=== PATIENT | male | born 1980 | race Caucasian/White ===

== ENCOUNTER → 2023-04-09 | Outpatient (CLI) | payer SELFPAY ==
--- NOTE | 2023-04-09 16:39 | MRI_ITS ---
STUDY: MRI LEFT KNEE REASON FOR EXAM: Male, 42 years old. Left knee mass. Pain. TECHNIQUE: Standardized fat and water weighted pulse sequences were obtained in all 3 orthogonal planes. COMPARISON: None. FINDINGS: There is medial meniscus tear of the posterior horn and body with delamination, series 8 images 12/15 through . Normal hyaline cartilage of the medial femorotibial compartment. Normal medial femoral condyle and tibial plateau. Normal medial collateral ligamentous complex (MCL). Normal distal semimembranosus, gracilis and semitendinosus tendons. Normal lateral meniscus. Normal hyaline cartilage of the lateral femorotibial compartment. Normal lateral femoral condyle and tibial plateau. Normal proximal tibiofibular articulation. Normal lateral collateral ( fibular ) ligament. Normal popliteus tendon. Normal biceps femoris tendon. Normal anterior cruciate ligament (ACL). Normal posterior cruciate ligament (PCL). Normal congruent patellofemoral articulation. Normal hyaline cartilage of the patellofemoral compartment. Normal medial and lateral patellar retinaculum. Normal quadriceps tendon. Normal patellar tendon. Normal Hoffa''s fat pad. There is a small volume joint effusion. There is 3.2 x 1.7 cm lobular septated increased T1 and T2 signal mass in the lateral soft tissues. The otherwise visualized osseous structures are unremarkable. MRI/Lower Ext Joint Only W/WO Cont IMPRESSION: Complex cystic mass in the lateral subcutaneous soft tissues. Medial meniscus tear. Electronically Signed: Severino Hassan MD at 22:34 EST ,
== END | disposition home or self-care (01) ==
PROVIDERS: Referring Provider Surgery; Visit Provider Surgery
DX: M25.862 Other specified joint disorders, left knee (principal)
CPT/HCPCS: 73723; A9575

== ENCOUNTER 2024-06-10 05:53 | Day surgery (SDC) | payer SELFPAY ==
[2024-06-10] VITALS (8 sets, daily range): BP systolic 96–111; BP diastolic 58–80; PULSE 63–74; RESP 12–18; TEMP 36.2–36.9; O2SAT 97–99; BMI 24.5
[2024-06-10] MEDS: Lactated Ringers 1,000 ML 15 ML IV (06:36)
--- NOTE | 2024-06-10 06:51 | PCM.HP.BLA ---
History and Physical Date of Admission: 06/10/24 Intake Vital Signs 04/26/2413:21 05/18/2513:40 Height 5 ft 6 in 5 ft 6 in Weight: 155 lb BMI 25.0 BP 112/75 Blood Pressure Location Lt brachial Position Sitting Respiration 16 Intake Visit Reasons: update h&P for exc cyst in OR-s/p Chief Complaint: discuss surgery Javascript Engineer Required: No Is patient in pain?: No Allergies No Known Allergies Allergy (Unverified 05/18/24 14:41) Medications ?Medication ?Instructions ?Recorded ?Confirmed ?Type ascorbic acid (vitamin C) 500 mg mg PO 05/18/24 05/18/24 History capsule garlic 500 mg capsule 500 mg PO QDAY 05/18/24 05/18/24 History cesilia root extract 50 mg tablet mg PO 05/18/24 05/18/24 History grape seed extract 100 mg capsule mg PO 05/18/24 05/18/24 History turmeric 400 mg capsule mg PO 05/18/24 05/18/24 History vitamin B complex 1 tab PO QDAY 05/18/24 05/18/24 History Have you fallen in the past year?: No PFSH Medical History Mass of joint of left knee Cyst, dermoid, leg Dermoid cyst of left lower extremity Social History (Updated 05/18/24 @ 14:40 by Livier Vargas) Smoking Status: Never smoker alcohol intake: never HPI HPI HPI: Patient is a 43 y/o M who presents for an update history and physical for an elective left lateral lower extremity skin mass removal. Patient denies any recent hospitalizations or illnesses. He notes the mass was sore last week as he hit it on the door. He notes today there is no pain. He denies any drainage from the mass. He states approximately 6 years ago he had the area opened and drained in [place]. He notes the surgeon performing the procedure removed a cystic structure, however the lesion returned. He denies any trauma to the area. He denies any bleeding from the lesion. Patient denies any previous complication or side effects from anesthesia. He denies previous cardiac or pulmonary history. He does not take any routine medications. Patient's previous history per Dr. Kim: Patient is here for fluid collection on the lateral left knee. Patient reports he had a cyst removed from this area 2 years ago and ever since it keeps filling up with fluid he keeps draining with a needle and syringe. Patient is a 42-year-old male with a cyst on the lateral aspect of his knee. I have ordered an MRI which did not show any communication with the joint. MRI results completed on 04/09/23: FINDINGS: There is medial meniscus tear of the posterior horn and body with delamination, series 8 images 12/15 through . Normal hyaline cartilage of the medial femorotibial compartment. Normal medial femoral condyle and tibial plateau. Normal medial collateral ligamentous complex (MCL). Normal distal semimembranosus, gracilis and semitendinosus tendons. Normal lateral meniscus. Normal hyaline cartilage of the lateral femorotibial compartment. Normal lateral femoral condyle and tibial plateau. Normal proximal tibiofibular articulation. Normal lateral collateral (fibular) ligament. Normal popliteus tendon. Normal biceps femoris tendon. Normal anterior cruciate ligament (ACL). Normal posterior cruciate ligament (PCL). Normal congruent patellofemoral articulation. Normal hyaline cartilage of the patellofemoral compartment. Normal medial and lateral patellar retinaculum. Normal quadriceps tendon. Normal patellar tendon. Normal Hoffa''s fat pad. There is a small volume joint effusion. There is 3.2 x 1.7 cm lobular septated increased T1 and T2 signal mass in the lateral soft tissues. The otherwise visualized osseous structures are unremarkable. MRI/Lower Ext Joint Only W/WO Cont IMPRESSION: Complex cystic mass in the lateral subcutaneous soft tissues. Medial meniscus tear. ROS General General: No weight change, appetite, fatigue, colon cancer or breast cancer HEENT HEENT: No difficulty swallowing, eye injury, eye surgery, swollen glands or hoarseness Endo Endocrine: No thyroid disease, diabetes mellitus, thyroid cancer, Hair loss, heat intolerance or cold intolerance Skin Skin: No rash or changing moles Musc Musculoskeletal: No back problems, arthritis, rheumatoid arthritis, gout or joint pain Cardio Cardiovascular: No murmur, pacemaker, heart disease, atrial fibrillation, high blood pressure, heart attack, heart stent, palpitations, shortness of breath with exertion or chest pain Psych Psychiatric: No depression, anxiety or hearing voices Resp Respiratory: No shortness of breath, No sleep apnea, No cough, No COPD, No asthma, No emphysema and No wheezing Gastro Gastrointestinal: No abdominal pain, No nausea or vomiting, No diarrhea, No constipation, No blood in stool, No acid reflux, No hemorrhoids, No ulcers, No gallbladder problem and No black,tarry stools Mikhail Hematologic: No blood thinners, No blood disorders, No bleeding, No anemia and No blood clots Neuro Neurologic: No numbness and No tingling Exam Const General: cooperative, healthy appearing and comfortable [facility] Head: normal to inspection Eyes General: appearance normal, both eyes and all related structures Neck Neck: normal visual inspection Neck mass: No Resp Effort & Inspection: normal respiratory effort Auscultation: clear to auscultation bilaterally Cardio Palpation: normal PMI GI Inspection: normal to inspection Palpation: soft Auscultation: normal bowel sounds Musc Cervical Spine: normal cervical lordosis Skin Other: Left lateral aspect of the knee- cystic mass noted approximately 4 cm diameter. Tenderness to palpation. No drainage noted. Appears to have some vascularity to it. Neuro General: no focal motor deficits and CN's II-XI intact bilaterally Extrem General: normal to inspection Psych Appearance: grossly normal Affect: normal affect Assessment and Plan Assessment and Plan (1) Mass of joint of left knee: Status: Acute Plan: Dr. Kim will plan to perform an excision of subcutaneous mass left lateral lower extremity. Procedure details, risks including but not limited to bleeding, infection, injury to the knee joint, injury to any nerve or blood vessel and benefits have been explained. Patient has had the opportunity to ask and have questions answered. Patient verbally understands and agrees with the plan. Patient will hold the tumeric for 7 days prior to the procedure. I have examined the patient and the H&P has been reviewed. There are no clinical changes since date of exam.
--- NOTE | 2024-06-10 07:03 | PRE.ANES_ITS ---
ASA Classification* ASA Classification ASA Classification: 1 Assessment & Plan Anesthesia* Anesthesia Assessment Anesthesia Assessment: Discussed sedation and/or anesthesia options, risks, benefits, and alternatives with patient/parents/legal guardian/POA. Questions invited. The patient/parents/legal guardian/POA seems to understand and agrees to proceed with anesthesia plan. Reviewed the physical assessment, medical history, allergy history and patient home medications list prior to surgery/procedure/anesthetic and documented any changes. Performed airway and anesthesia risk assessments. 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 When Was Last Pacemaker Check QUESTION #4 FULL TEXT: You/Your Family Experience fever (hyperthermia) with Anesthesia Last Oral Intake Last Oral intake: Last Oral Intake NPO since 21:00 06/10/24 06:29 Meds taken in AM with sips of No 06/10/24 06:29 water? Meds patient instructed to take am of surgery PONV PONV - restaurant delivery driver: PONV - restaurant delivery driver Female No 05/27/24 12:36 HX of Motion Sickness Yes 05/27/24 12:36 HX of N/V After Surgery No 05/27/24 12:36 Non-Smoker No 05/27/24 12:36 Duration of Surgery greater Yes 05/27/24 12:36 than 60 minutes Number of Risk Factors 2 05/27/24 12:36 PONV Score Moderate Risk 05/27/24 12:36 Height & Weight Height & Weight: Anesthesia: Height & Weight Height 5 ft 6 in 06/10/24 06:29 Weight: 68.9 kg 06/10/24 06:29 Body Mass Index (BMI) 24.5 06/10/24 06:29 Respiratory Assessment Respiratory Assessment - restaurant delivery driver: Respiratory Tract Infection Hx - restaurant delivery driver Hx Respiratory Tract Infection No 05/27/24 12:36 STOP Sleep Apnea STOP Sleep Apnea - restaurant delivery driver: STOP Sleep Apnea - restaurant delivery driver Hx Hypertension No 05/27/24 12:36 Hx Sleep Apnea No 05/27/24 12:36 CPAP BIPAP Do you snore loudly (louder No 05/27/24 12:36 than talking or can be heard Do you often feel tired/ No 05/27/24 12:36 fatigued/ sleepy during daytime? Has anyone observed you stop No 05/27/24 12:36 breathing during sleep? STOP Results Negative 05/27/24 12:36 QUESTION #5 FULL TEXT : Do you snore loudly (louder than talking or can be heard through closed doors)? 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 Specify any problems Hx of Preganancy in last 3 N/A 05/27/24 12:36 Months Nurse Filling Out Transfusion MGRIFFITH 05/27/24 12:36 & Questions: Date: 05/27/24 05/27/24 12:36 Time: 12:38 05/27/24 12:36 Patient unable to answer at this time (ie. confused, unrespo /Reproduction History /Reproductive History - restaurant delivery driver: /Reproductive Hx- restaurant delivery driver Hx Now Gestational Age (in weeks): EDC: Hx Hx Para Hx Section SAB Active Medications Active Medications: Current Medications Generic Name Dose Route Start Last Admin Trade Name Freq PRN Reason Stop Dose Admin Cefotetan Disodium 2 gm/ 100 mls @ 200 mls/hr 06/10/24 07:30 Sodium Chloride IV 06/10/24 07:59 INTRAOP ONE Lactated Ringer's 1,000 mls @ 15 mls/hr 06/10/24 06:15 06/10/24 06:36 IV 15 mls/hr .Q48H LILIANA Administration PFSH Medical History (Updated 05/27/24 @ 12:44 by Pam Dhillon) Cancer Non-smoker Mass of joint of left knee Cyst, dermoid, leg Dermoid cyst of left lower extremity Home Medications ?Medication ?Instructions ?Recorded ?Last Taken ?Type ascorbic acid (vitamin C) 500 mg 500 mg PO DAILY 05/1806/09/24 History capsule garlic 500 mg capsule 500 mg PO QDAY 05/18/24 Unkn own History cesilia root extract 50 mg tablet 50 mg PO DAILY 06/09/24 History grape seed extract 100 mg capsule 100 mg PO DAILY 04/1206/09/24 History turmeric 400 mg capsule 4 mg PO DAILY 05/18/24 Unkno wn History vitamin B complex 1 tab PO QDAY 05/18/2406/09 History Allergy/AdvReac Type Severity Reaction Status Date / Time No Known Allergies Allergy Verified 05/27/24 12:34 no significant family history Surgical History History of removal of testicle Social History (Updated 05/18/24 @ 14:40 by Livier Vargas) Smoking Status: Never smoker alcohol intake: never Review of Systems (Anesthesia) ROS Narrative System reviewed and no additional complaints, except as documented.
[2024-06-10] MEDS: Cefotetan 2 GM in 0.9% Normal Saline (100mL MB+) 100 ML IV (07:26)
--- NOTE | 2024-06-10 07:30 | LES_PTH ---
PATIENT: DEANGELO PACHECO Jr. LOC: [facility] [place] U#:[id number] AGE/SX: 43/M ROOM: RE06/10/[address]: Dr. Denis Kim MD : 1980 BED: DIS: 06/10/2024 SPEC #: [id number] RECD: 06/10/24 09:39 STATUS: FEROZ REKalyn #: [id number] BARRETT: 06/10/24 07:[address]: Denis Kim DEPT: SURGICAL PATHOLOGY RECD BY: Kb Vigil ENTERED: 06/10/24 09:39 SP TYPE: Lesion OTHR DR: No Primary Care Phys Tissues: A - Skin of leg, NOS Procedures: Surgery Specimen Level IV HEADER OPERATION: Excision mass left lower leg PRE-OP DIAGNOSIS: Mass of joint of left knee TISSUE SUBMITTED: A- Mass left lower leg MICROSCOPIC DIAGNOSIS A. Skin and soft tissue, left lower leg, mass, excision: * Poroma - see Comment. COMMENT The slides/images were reviewed in intradepartmental consultation by Dr Meliza Nowak (dermatopathology division, [facility]). MICROSCOPIC DESCRIPTION Slides are reviewed. GROSS DESCRIPTION A. Received in formalin in a container labeled with the patient's name, date of , and mass left lower leg is a 2.6 x 2.1 x 1.3 cm previously disrupted, shaggy, and unoriented soft tissue excision. It is partially surfaced by a poorly adherent portion of bellamy-pink and unremarkable skin measuring 3.1 x 1.4 cm. Due to the disrupted nature, a distinct margin is not grossly recognized. Serial sections reveal bellamy-pink, friable, and somewhat papillary surfaces underlying the skin. Also received in the same container are 2 bellamy-pink fragments of soft tissue and skin each measuring 1.0 x 0.8 x 0.7 cm. Sectioning of each reveals unremarkable cut surfaces. Meat And Seafood Manager sections are submitted in A1-2. [facility] 06-10-2024 CPT:[id number]
[2024-06-10] MEDS: Lidocaine 1% /Epi 1:100 (20ml) 20 ML Vial (07:33)
--- NOTE | 2024-06-10 07:54 | PCM.POST.ANE ---
Anesthesia: Postop Eval I Current Vital Signs Temperature: 97.1 F Pulse Rate: 74 Blood Pressure: 97/58 Respiratory Rate: 16 Pulse Ox: 98 Oxygen Delivery Method: Room Air Fraction of Inspired Oxygen (FIO2): 0.21 Assessment Airway patent: Yes Spontaneous unlabored respirations: Yes Mental status: Awake nausea: No Vomiting: No Anesthesia Complication: No Fluid Hydration Crystalloid volume administer (ml): 400 Total IV fluid infused: 400 Progress Note Anesthesia document: Postop Eval 1 completed: Yes
--- NOTE | 2024-06-10 08:10 | OP.PCM_ITS ---
Operative Report (Standard) Operative Information Date of Procedure: 06/10/24 Pre-Operative Diagnosis: Left lower extremity mass Post-Operative Diagnosis: Same Surgery/Procedure Performed: Excision of left lower extremity mass, 4 cm distance education coordinator: Yes Grader Tender: Leah Gomez Tasks completed by personal injury legal assistant: Retracting Type of Anesthesia: Local MAC RN Documented Start/Stop Times: Operation Date: 06/10/24 07:30 Case Time Into Pre-Op 06/10/24 06:09 Anesthesia Start 06/10/24 07:18 Into Room 06/10/24 07:18 Out of Pre-Op 06/10/24 07:19 Procedure Start 06/10/24 07:33 Procedure End 06/10/24 07:44 Anesthesia End 06/10/24 07:49 Out of Room 06/10/24 07:49 Into Recovery 06/10/24 07:51 Out of Recovery 06/10/24 08:05 Into Phase II Recovery 06/10/24 08:06 Procedure Start Time: 07:33 Procedure Stop Time: 07:44 Select all DRAINS/GRAFTS/IMPLANTS that apply: None Estimated Blood Loss: 5 Specimen collected: Yes Description of specimen(s) removed: Left lower extremity mass Description of surgery: The patient was brought back to the operating room and MAC anesthesia was induced. The left lower extremity was prepped and draped in the usual sterile fashion. The area overlying the cystic portion was anesthetized and then opened with a scalpel and drained. Next an elliptical incision was made and skin was removed. The contents and the mass were excised. The area was irrigated and suctioned dry. Hemostasis was obtained use electrocautery. The incision was then closed with interrupted 3-0 Vicryl sutures and interrupted 3-0 nylon sutures. Dressing and Coban were applied. Patient was taken to PACU in stable condition. Surgical Findings: Cystic mass of the lateral left knee Complications Complications: No
--- NOTE | 2024-06-10 08:16 | EX.PCM.DISCH ---
Discharge Instructions Diet Discharge Diet: Light diet - advance as tolerated Activity Discharge Activity: May Drive (once off narcotics) and May Shower Lifting Restrictions: none Dressing / Incision Call your doctor if your incision/area has: Continuous Slow Oozing, Sudden Increased Bleeding, Increased Pain/ Swelling, Increased Redness, Foul Smelling Discharge and Swelling at the incision site Call your doctor if you observe: Fever of 101 or Higher Change Dressing in: 1 day Cleanse incision/area with: Soap & Water Additional Dressing/Incision Instructions:: Alternate ibuprofen and Tylenol for pain control, oxycodone for breakthrough pain Follow Up Care Please Follow Up With: Denis Kim MD When: Please call to schedule 2 week follow up appointment. [phone] Test Results: Test results from this visit will be discussed in further detail at your follow-up appointment, if applicable. Discharge Plan Admission Attending Provider: Denis Kim Primary Care Provider: Care Physician,No Primary Instructions Print Language: Slovak Discharge Orders/Prescriptions Prescriptions: New oxycodone 5 mg Tablet 5 - 10 mg PO Q4H PRN PRN (Reason: Pain Score 4-10) 5 Days Qty: 14 0RF No Action garlic 500 mg capsule 500 mg PO QDAY ascorbic acid (vitamin C) 500 mg capsule 500 mg PO DAILY vitamin B complex Tablet 1 tab PO QDAY turmeric 400 mg capsule 4 mg PO DAILY grape seed extract 100 mg capsule 100 mg PO DAILY cesilia root extract 50 mg tablet 50 mg PO DAILY Referrals / Follow Up: Care Physician,No Primary [Primary Care Provider] - Disposition Disposition (needs filled in before D/C Order can be placed): Home, Self Care
--- NOTE | 2024-06-10 10:32 | POSTOPAN2_ITS ---
Anesthesia Postop Eval I Sum Postop Eval Completion status Anesthesia document: Postop Eval 1 completed: Yes Anesthesia Postop Eval I Summary Anesthesia Postop Eval I Summary: Anesthesia Postop Eval I: Assessment Summary Airway patent Yes 06/10/24 07:56 WHITE [email or web address] Spontaneous unlabored Yes 06/10/24 07:56 WHITE [email or web address].NFOR respirations Mental status Awake 06/10/24 07:56 WHITE [email or web address].NFOR nausea No 06/10/24 07:56 WHITE SPOOLER.NFOR Vomiting No 06/10/24 07:56 WHITE SPOOLER.NFOR Anesthesia Postop Eval I: Fluid Summary Crystalloid volume administer 400 06/10/24 07:56 WHITE SPOOLER.NFOR (ml) Colloids volume administered ( ml) Blood Product volume administered (ml) Total IV fluid infused 400 06/10/24 07:56 WHITE [email or web address].NFOR Anesthesia Postop Eval I: Summary Notes Anesthesia Complication No 06/10/24 07:56 WHITE SPOOLER.NFOR Anesthesia Complication Comment: Post-operative progress note Anesthesia: Postop Eval II Evaluation Mental status: Awake and Calm Pain Level: 0 nausea: No Vomiting: No Complications Anesthesia Complication: No
--- NOTE | 2024-06-10 10:32 | PCM.POSTANE2 ---
Anesthesia Postop Eval I Sum Postop Eval Completion status Anesthesia document: Postop Eval 1 completed: Yes Anesthesia Postop Eval I Summary Anesthesia Postop Eval I Summary: Anesthesia Postop Eval I: Assessment Summary Airway patent Yes 06/10/24 07:56 SUPERVISOR WARPING DEPARTMENT.NFOR Spontaneous unlabored Yes 06/10/24 07:56 SUPERVISOR WARPING DEPARTMENT.NFOR respirations Mental status Awake 06/10/24 07:56 SUPERVISOR WARPING DEPARTMENT.NFOR nausea No 06/10/24 07:56 SUPERVISOR WARPING DEPARTMENT.NFOR Vomiting No 06/10/24 07:56 SUPERVISOR WARPING DEPARTMENT.NFOR Anesthesia Postop Eval I: Fluid Summary Crystalloid volume administer 400 06/10/24 07:56 SUPERVISOR WARPING DEPARTMENT.NFOR (ml) Colloids volume administered ( ml) Blood Product volume administered (ml) Total IV fluid infused 400 06/10/24 07:56 SUPERVISOR WARPING DEPARTMENT.NFOR Anesthesia Postop Eval I: Summary Notes Anesthesia Complication No 06/10/24 07:56 SUPERVISOR WARPING DEPARTMENT.NFOR Anesthesia Complication Comment: Post-operative progress note Anesthesia: Postop Eval II Evaluation Mental status: Awake and Calm Pain Level: 0 nausea: No Vomiting: No Complications Anesthesia Complication: No
== END 2024-06-10 08:50 | disposition home or self-care (01) ==
LOC: SDC 06:01 → AC 06:03
PROVIDERS: Referring Provider Surgery; Visit Provider Surgery
PROC: (CPT 27337; principal; 2024-06-10 07:15)
DX: D23.72 Other benign neoplasm of skin of left lower limb, including hip (principal); Z79.899 Other long term (current) drug therapy
CPT/HCPCS: 27337; 00400; 88305; J2405